=== PATIENT | male | born 1940 | race Two or more races ===

== ENCOUNTER → 2017-01-06 | Outpatient (CLI) | payer MEDICARE, OTHER ==
[~2017-01-06] MED LIST: APIX5TAB PO; ASPI1TAB57 PO; ATOR40TA16 PO; ATOR80TA45 PO; CIPR-9 PO; CLOP75TA PO; ENOX30P SQ; EZET10 PO; FINA5TAB2 PO; HYDR-3366 PO; HYDR-3583 PO; NITR1SUB3 SL; RANI150T PO; TAMS0.4C4 PO; TOPI50TA7 PO; TRAM50TA PO
[2017-01-06 12:09] LABS: AUTOMATED NEUTROPHIL # 4.6 TH/MM3 (1.8-7.7); BASOPHIL # 0.1 TH/MM3 (0-0.2); EOSINOPHIL # 0.1 TH/MM3 (0-0.4); EOSINOPHIL % 0.8 % (0.0-4.0); HEMATOCRIT 41.7 % (39.0-51.0); HEMO FLAGS DIFF FINAL; LYMPH % 19.6 % (9.0-44.0); LYMPHOCYTE # 1.3 TH/MM3 (1.0-4.8); MEAN CELL VOLUME 93.2 FL (80.0-100.0); MEAN CORPUSCULAR HEMOGLOBIN 31.5 PG (27.0-34.0); MEAN CORPUSCULAR HGB CONC 33.8 % (32.0-36.0); MONO % 9.1 % (0.0-8.0); NEUT % 69.5 % (16.0-70.0); PLATELET COUNT 179 TH/MM3 (150-450); RED BLOOD COUNT 4.47 MIL/MM3 (4.50-5.90); RED CELL DISTRIBUTION WIDTH 14.5 % (11.6-17.2); WHITE BLOOD COUNT 6.6 TH/MM3 (4.0-11.0)
[2017-01-06 12:16] LABS: APTT (PATIENT) 28.1 SEC (24.3-30.1); PROTHROMBIN TIME - PATIENT 10.8 SEC (9.8-11.6)
[2017-01-06 12:16] LABS: BACTERIA, URINE RARE /hpf; BLOOD, URINE NEG (NEG); COMMENT (UR) CULT NOT INDICATED; CULTURE IF INDICATED CULT NOT INDICATED; GLUCOSE,URINE NEG (NEG); KETONE, URINE NEG (NEG); MUCUS URINE FEW /lpf (OCC); NITRITE,URINE NEG (NEG); URINE COLOR YELLOW (YELLW/STRAW)
[2017-01-06 12:30] LABS: ANION GAP 5 MEQ/L (5-15); AST (GOT) 12 U/L (15-37); BLOOD UREA NITROGEN 19 MG/DL (7-18); CHLORIDE 111 MEQ/L (98-107); GLOMERULAR FILTRATION RATE 69 ML/MIN (>89); GLUCOSE,FASTING 85 MG/DL (74-99); POTASSIUM 4.3 MEQ/L (3.5-5.1); SODIUM (NA) 141 MEQ/L (136-145)
[2017-01-06 12:31] LABS: ALT (GPT) 14 U/L (12-78)
[2017-01-06 12:33] LABS: ALKALINE PHOSPHATASE 65 U/L (45-117); TOTAL BILIRUBIN ADULT 0.5 MG/DL (0.2-1.0)
--- NOTE | 2017-01-06 12:47 | RADRPT ---
EXAM DATE/TIME: 01/06/2017 12:38 [facility] COMPARISON: No previous studies available for comparison. INDICATIONS : Evaluate for pneumonia, pneumothorax and communicable diseases. Pre-op back surgery MEDICAL HISTORY : Cardiovascular disease. Hypertension SURGICAL HISTORY : Coronary artery stent. ENCOUNTER: Initial ACUITY: 1 day PAIN SCORE: 0/10 LOCATION: chest FINDINGS: PA and lateral views of the chest demonstrate the lungs to be symmetrically aerated without evidence of mass, infiltrate or effusion. The cardiomediastinal contours are unremarkable. Osseous structure s are intact. CONCLUSION: Normal examination. Jose Carlos Dudley MD on January 06, 2017 at 12:45 Board Certified Radiologist. This report was verified electronically.
--- NOTE | 2017-01-07 10:52 | EKG ---
Date Performed: 01/06/2017 Time Performed: 12:01:11 PTAGE: 76 years EKG: Sinus rhythm WITH OCCASIONAL SUPRAVENTRICULAR PREMATURE COMPLEXES BORDERLINE ECG NO PREVIOUS TRACING DOCTOR: Jose Carlos Roche Interpretating Date/Time 01/07/2017 10:51:57
== END ==
LOC: CPRE 11:38
PROVIDERS: ATTEND Neurological Surgery
DX: Z01.810 Encounter for preprocedural cardiovascular examination (principal); Z01.811 Encounter for preprocedural respiratory examination; Z01.812 Encounter for preprocedural laboratory examination; M51.16 Intervertebral disc disorders with radiculopathy, lumbar region; R94.31 Abnormal electrocardiogram [ECG] [EKG]; Z79.01 Long term (current) use of anticoagulants
CPT/HCPCS: 36415; 71020; 80053; 81001; 85025; 85610; 85730; 93005

== ENCOUNTER → 2017-01-14 | Day surgery (SDC) | payer MEDICARE, OTHER ==
[~2017-01-14] VITALS: Ht 172.7 cm; Wt 91.4 kg
[~2017-01-14] MED LIST changes: +ACETAMINOPHEN 1000 MG/100 ML 100 ML IV ONE; +BUPIVACAINE/EPINEPHRINE 0.5% PF 30 ML VIAL ONE; +CHLORHEXIDINE GLUCONATE 2 % 1 PACK (2 CLOTHS) TOPICAL PRN; +DO NOT ADM ANY ANTICOAGULANT DRUGS PRN; +GELFOAM SIZE 100 ONE; +GLYCOPYRROLATE 1 MG/5 ML SYRINGE IV PUSH ONE; +INSULIN HUMAN REGULAR 1,000 UNITS/10 ML VIAL SQ PRN; +LACTATED RINGER'S 1000 ML IV PRN; +LIDOCAINE HCL 1% PF 5 ML SYRINGE OTHER ONE; +METOPROLOL TARTRATE 25 MG TAB PO PRN; +MORPHINE SULFATE 4 MG/ML INJ ONE; +NEOSTIGMINE 3 MG/3 ML SYR IV ONE; +NORMOSOL R INJ 2,000 ML IV ONE; +ONDANSETRON HCL 4 MG/2 ML VIAL IV PUSH ONE; +PHENYLEPH/NS 1000 MCG/10 ML SYR IV ONE; +POVIDONE IODINE 5% (ANTISEPSIS KIT) 4 APPLICATIONS EACH NARE PRN; +PROPOFOL 200 MG/20 ML AMP IV ONE; +ROCURONIUM INJ 50 MG/5 ML SYRINGE IV PUSH ONE; +SODIUM CHLOR 0.9% 1000 ML INJ 1,000 ML IV SCH; +SODIUM CHLORID 0.9% 500 ML IV PRN; +THROMBIN (TOPICAL) 5,000 UNIT VIAL ONE; +VANCOMYCIN HCL 1000 MG ON-CALL/NS 250 ML IV SCH; +VANCOMYCIN HCL 1000 MG VIAL ONE; +ePHEDrine/NS 25 MG/5 ML SYR IV ONE; +methylPREDNISolone ACETATE 40 MG/ML VIAL ONE
--- NOTE | 2017-01-14 11:37 | RADRPT ---
EXAM DATE/TIME: 01/14/2017 08:49 [facility] COMPARISON: No previous studies available for comparison. INDICATIONS : L3-L4 and L4-L5 sj-laminectomy. Level localization. MEDICAL HISTORY : None. SURGICAL HISTORY : None. ENCOUNTER: Subsequent ACUITY: 1 day PAIN SCORE: Non-responsive. LOCATION: Lumbar spine. FINDINGS: Single limited lateral view of the low lumbar spine reveals localization markers directed toward the L3-4 and L4-5 disc space. CONCLUSION: Localization at L3-4 and L4-5 Jasvir Soares MD on January 14, 2017 at 11:34 Board Certified Radiologist. This report was verified electronically.
--- NOTE | 2017-01-14 11:50 | PD.OP ---
Georges Baron MD Operative Report Date of Surgery: Jan 14, 2017 Preoperative Diagnosis: Low back pain with the left lower extremity polyradiculopathy; L3-4 and L4-5 disc herniation with facet hypertrophy and associated spinal/foraminal stenosis Postoperative Diagnosis: Same Procedure: Left L3-4 and L4-5 hemilaminotomy with medial facetectomy and foraminotomy and microdiscectomy; microsurgical technique Anesthesia: Gen. endotracheal by Vu sotomayor Surgeon: Ashu Potter M.D. Whizzer Operator(s): Megan Ibarra Operation and Findings: Following administration of general endotracheal anesthesia, patient received vancomycin 1 g intravenously. Sequential compression devices were placed for DVT prophylaxis. He was then turned in prone position on Tahir frame and the Naeem table and all pressure points adequately padded. The lumbar region was then shaved and prepped with a Betadine and ChloraPrep. Sterile draping undertaken with Ioban. Midline incision overlying the L3-L5 levels was then made after infiltrating the skin with 0.5% Marcaine with epinephrine solution. The skin incision was made extending down through the fascia and then using the subperiosteal plane on the right side the muscular attachments to the spinous process and lamina were detached. Intraoperative fluoroscopy was used for level confirmation and further dissection undertaken using microtechnique with microscope magnification. The inferior portion of the left L3, L4 and superior portion of the L lamina was then drilled out and the underlying ligamentum flavum also removed. There was some facet arthropathy noted in the medial portion of facet was also resected and the lateral recess decompressed. Epidural venous stasis which he with the bipolar cautery along with Gelfoam and thrombin and bone wax used at the laminotomy edges for hemostasis. The thecal sac was then gently retracted with a nerve root retractor at both L3-4 and L4-5 levels and an extruded disc fragments identified which was migrated into the foramens. Fragments were removed with pituitary forceps and the nerve root impingement radicular laterally in the foramens along with thecal sac compression decompressed. The area was then copiously irrigated with vancomycin solution. The retractors removed and the muscle fascia proximal using 2-0 Vicryl interrupted stitches. 3-0 Vicryl subcuticular stitches were also placed in an interrupted fashion and planned skin closure was with Mastisol and Steri-Strips. A sterile dressing was then applied and the patient then turned in the supine position and extubated and taken to recovery room in stable condition. There were no intraoperative complications and all sponge and needle count was correct at the end of the procedure. Estimated blood loss about 50 cc. Ashu Potter MD Jan 14, 2017 11:49
[2017-01-14 14:20] VITALS: BP 110/72; PULSE 78; RESP 16; TEMP 97.5; O2SAT 97
== END | disposition home or self-care (01) ==
LOC: HSDC 05:18
PROVIDERS: ATTEND Neurological Surgery
DX: M51.16 Intervertebral disc disorders with radiculopathy, lumbar region (principal)
CPT/HCPCS: 00630; 63030; 63035; 72020; 76000; J0131; J1030; J2270; J2370; J2405; J2710; J3010; J3370; J7120

== ENCOUNTER → 2017-08-10 | Outpatient (CLI) | payer MEDICARE, OTHER ==
[~2017-08-10] MED LIST changes: -ACETAMINOPHEN 1000 MG/100 ML 100 ML IV ONE; -ATOR80TA45 PO; -BUPIVACAINE/EPINEPHRINE 0.5% PF 30 ML VIAL ONE; -CHLORHEXIDINE GLUCONATE 2 % 1 PACK (2 CLOTHS) TOPICAL PRN; +CYCL10TA PO; -DO NOT ADM ANY ANTICOAGULANT DRUGS PRN; -ENOX30P SQ; +GABA300C5 PO; -GELFOAM SIZE 100 ONE; -GLYCOPYRROLATE 1 MG/5 ML SYRINGE IV PUSH ONE; -HYDR-3583 PO; -INSULIN HUMAN REGULAR 1,000 UNITS/10 ML VIAL SQ PRN; -LACTATED RINGER'S 1000 ML IV PRN; -LIDOCAINE HCL 1% PF 5 ML SYRINGE OTHER ONE; -METOPROLOL TARTRATE 25 MG TAB PO PRN; -MORPHINE SULFATE 4 MG/ML INJ ONE; -NEOSTIGMINE 3 MG/3 ML SYR IV ONE; -NORMOSOL R INJ 2,000 ML IV ONE; -ONDANSETRON HCL 4 MG/2 ML VIAL IV PUSH ONE; -PHENYLEPH/NS 1000 MCG/10 ML SYR IV ONE; -POVIDONE IODINE 5% (ANTISEPSIS KIT) 4 APPLICATIONS EACH NARE PRN; -PROPOFOL 200 MG/20 ML AMP IV ONE; -ROCURONIUM INJ 50 MG/5 ML SYRINGE IV PUSH ONE; -SODIUM CHLOR 0.9% 1000 ML INJ 1,000 ML IV SCH; -SODIUM CHLORID 0.9% 500 ML IV PRN; -THROMBIN (TOPICAL) 5,000 UNIT VIAL ONE; -TRAM50TA PO; -VANCOMYCIN HCL 1000 MG ON-CALL/NS 250 ML IV SCH; -VANCOMYCIN HCL 1000 MG VIAL ONE; -ePHEDrine/NS 25 MG/5 ML SYR IV ONE; -methylPREDNISolone ACETATE 40 MG/ML VIAL ONE
[2017-08-10 13:55] LABS: AUTOMATED NEUTROPHIL # 4.8 TH/MM3 (1.8-7.7); BASOPHIL # 0.1 TH/MM3 (0-0.2); BASOPHIL % 0.9 % (0.0-2.0); EOSINOPHIL # 0.1 TH/MM3 (0-0.4); HEMOGLOBIN 15.3 GM/DL (13.0-17.0); LYMPH % 20.9 % (9.0-44.0); LYMPHOCYTE # 1.5 TH/MM3 (1.0-4.8); MEAN CELL VOLUME 89.5 FL (80.0-100.0); MEAN CORPUSCULAR HEMOGLOBIN 30.4 PG (27.0-34.0); MEAN CORPUSCULAR HGB CONC 33.9 % (32.0-36.0); MEAN PLATELET VOLUME 8.2 FL (7.0-11.0); MONO % 8.1 % (0.0-8.0); MONOCYTE # 0.6 TH/MM3 (0-0.9); NEUT % 68.1 % (16.0-70.0); PLATELET COUNT 186 TH/MM3 (150-450); RED BLOOD COUNT 5.03 MIL/MM3 (4.50-5.90); RED CELL DISTRIBUTION WIDTH 14.2 % (11.6-17.2); WHITE BLOOD COUNT 7.1 TH/MM3 (4.0-11.0)
[2017-08-10 14:09] LABS: BILIRUBIN, URINE NEG (NEG); BLOOD, URINE NEG (NEG); GLUCOSE,URINE NEG (NEG); KETONE, URINE NEG (NEG); MUCUS URINE FEW /lpf (OCC); NITRITE,URINE NEG (NEG); URINE COLOR YELLOW (YELLW/STRAW); URINE LEUKOCYTE ESTERASE NEG (NEG)
[2017-08-10 14:09] LABS: PROTHROMBIN TIME - PATIENT 10.3 SEC (9.8-11.6)
[2017-08-10 14:19] LABS: ALBUMIN 3.8 GM/DL (3.4-5.0); AST (GOT) 12 U/L (15-37); BICARBONATE 23.7 MEQ/L (21.0-32.0); BLOOD UREA NITROGEN 17 MG/DL (7-18); CALCIUM 8.7 MG/DL (8.5-10.1); CHLORIDE 112 MEQ/L (98-107); GLOMERULAR FILTRATION RATE 73 ML/MIN (>89); GLUCOSE,FASTING 106 MG/DL (74-99); SODIUM (NA) 143 MEQ/L (136-145)
[2017-08-10 14:23] LABS: ALKALINE PHOSPHATASE 75 U/L (45-117); ALT (GPT) 21 U/L (12-78); TOTAL BILIRUBIN ADULT 0.4 MG/DL (0.2-1.0); TOTAL PROTEIN 7.5 GM/DL (6.4-8.2)
== END ==
LOC: CPRE 12:13
PROVIDERS: ATTEND Neurological Surgery
DX: Z01.812 Encounter for preprocedural laboratory examination (principal); M51.16 Intervertebral disc disorders with radiculopathy, lumbar region; M51.36 Other intervertebral disc degeneration, lumbar region; Z79.01 Long term (current) use of anticoagulants
CPT/HCPCS: 36415; 80053; 81001; 85025; 85610; 85730; 87640; 87641

== ENCOUNTER 2017-08-13 05:40 | Inpatient (IN) ==
[2017-08-16] MEDS ORDERED: Acetaminophen 325 MG Tablet PO PRN (00:01)
[2017-08-16] MEDS ORDERED: Calcium Gluconate Inj 1 GM in Sodium Chlor 0.9% Inj 100 ML IV.SIG PRN (00:01)
[2017-08-16] MEDS ORDERED: Chlorhexidine Gluconate 2% 1 Pack (2 Cloths) TOPICAL PRN (00:01)
[2017-08-16] MEDS ORDERED: Aluminum/Magnesium/Simethacone Susp 30 ML UDC PO PRN (00:01)
[2017-08-16] MEDS ORDERED: Bisacodyl 10 MG Supp RECTAL PRN (00:01)
[2017-08-16] MEDS ORDERED: Morphine Inj 4 MG/ML Vial IV.PUSH PRN (00:01)
[2017-08-16] MEDS ORDERED: Metoprolol Tartrate 25 MG Tablet PO PRN (00:01)
[2017-08-16] MEDS ORDERED: Magnesium Sulfate Inj 2 GM in Sodium Chlor 0.9% Inj 100 ML IV.SIG PRN (00:01)
[2017-08-16] MEDS ORDERED: Menthol 5.8 MG Lozenge BUCCAL PRN (00:01)
[2017-08-16] MEDS ORDERED: Potassium Chlor 20 mEq Premix 20 MEQ/100 ML PIGGYBACK IV.SIG PRN (00:01)
[2017-08-16] MEDS: Topiramate 25 MG Tablet PO SCH (09:21)
[2017-08-16] MEDS: Gabapentin 300 MG Capsule PO SCH ×2 (09:22→20:16)
[2017-08-16] MEDS: Senna/Docusate Sodium 8.6/50 MG Tablet PO SCH ×2 (09:22→20:17)
[2017-08-16] MEDS: Finasteride 5 MG Tablet PO SCH (09:22)
[2017-08-16] MEDS: Famotidine 20 MG Tablet PO SCH ×2 (09:22→20:16)
[2017-08-16] MEDS: Ezetimibe 10 MG Tablet PO SCH (09:23)
[2017-08-16] MEDS: Ciprofloxacin 500 MG Tablet PO SCH ×2 (09:23→20:16)
[2017-08-16] MEDS ORDERED: Zolpidem Tartrate 5 MG Tablet PO SCH (21:00)
--- NOTE | 2017-08-16 22:09 | P.PNNS ---
Subjective Interval history: 08/13/2017 lumbar interbody fusion. 08/16/2017: Ambulating slowly without assistance. Moderate low back pain control with medication. No lower extremity radicular pain symptoms. There is mild to moderate relatively steady drainage from the incision site. Steri-Strips remain in place Physical Exam Vital signs: Vital Signs 08/16/17 00:00 08/16/17 04:00 08/16/17 04:47 Temperature 98.2 F Pulse Rate 74 Respiratory Rate 18 18 Blood Pressure 96/50 L 119/66 Pulse Oximetry 95 08/16/17 08:00 08/16/17 12:00 08/16/17 15:17 Temperature 97.5 F L 97.6 F Pulse Rate 75 82 Respiratory Rate 16 18 13 Blood Pressure 101/53 L 130/75 Pulse Oximetry 97 96 08/16/17 16:00 08/16/17 20:00 08/16/17 20:15 Temperature 98.1 F 98.3 F Pulse Rate 90 94 H Respiratory Rate 18 18 18 Blood Pressure 108/57 L 117/68 Pulse Oximetry 95 100 Intake & Output 08/16/17 08/16/17 08/17/17 06:59 18:59 06:59 Intake Total 1300 / 1300 Balance 1300 / 1300 Weight 62.1 kg Intake: Oral 1300 / 1300 Other: # Voids 2 4 Date of Last Bowel Movement 08/16/17 Narrative: Respirations regular nonlabored No significant extremity edema Mild to moderate relatively constant serosanguineous drainage from the incision site. No complaint of headache when ambulating Ambulating slowly without assistance Sensation intact light touch lower extremities Strength intact lower extremities Assessment and Plan - Assessment (1) Stenosis, spinal, lumbar Code(s): M48.061 - Spinal stenosis, lumbar region without neurogenic claudication Status: Acute Qualifiers: Neurogenic claudication status: with neurogenic claudication Qualified Code (s): M48.062 - Spinal stenosis, lumbar region with neurogenic claudication - Plan Findings were discussed with the patient Discussed with patient's nursing staff Hold discharge today due to study mild to moderate persistent serous sanguinous drainage from the incision site. Continue dressing changes as needed to keep incision dry. Continue present pain medications, physical therapy
[2017-08-17] MEDS: Finasteride 5 MG Tablet PO SCH (08:19)
[2017-08-17] MEDS: Topiramate 25 MG Tablet PO SCH (08:19)
[2017-08-17] MEDS: Ezetimibe 10 MG Tablet PO SCH (08:19)
[2017-08-17] MEDS: Gabapentin 300 MG Capsule PO SCH (08:20)
[2017-08-17] MEDS: Senna/Docusate Sodium 8.6/50 MG Tablet PO SCH (08:20)
[2017-08-17] MEDS: Famotidine 20 MG Tablet PO SCH (08:20)
[2017-08-17] MEDS: Ciprofloxacin 500 MG Tablet PO SCH (08:22)
--- NOTE | 2017-08-17 09:16 | P.PNNS ---
Subjective Interval history: Pt awake and alert. States incisional pain is improved today. He states pain in left leg is improved. He was having numbness in left anterior ly which is improved this morning. He states he has had blood draining from the incision over the weekend but is better today. He wants to be discharged home. Physical Exam Vital signs: Vital Signs 08/16/17 12:00 08/16/17 15:17 08/16/17 16:00 Temperature 97.6 F 98.1 F Pulse Rate 82 90 Respiratory Rate 18 13 18 Blood Pressure 130/75 108/57 L Pulse Oximetry 96 95 08/16/17 20:00 08/16/17 20:15 08/17/17 00:00 Temperature 98.3 F 98.4 F Pulse Rate 94 H 90 Respiratory Rate 18 18 18 Blood Pressure 117/68 111/65 Pulse Oximetry 100 93 L 08/17/17 04:06 08/17/17 08:00 Temperature 98 F Pulse Rate 78 Respiratory Rate 18 18 Blood Pressure 99/55 L Pulse Oximetry 94 L Intake & Output 08/16/17 08/17/17 08/17/17 18:59 06:59 18:59 Intake Total 1300 / 1300 Balance 1300 / 1300 Weight 62.1 kg Intake: Oral 1300 / 1300 Other: # Voids 4 3 Date of Last Bowel Movement 08/16/17 08/16/17 - Constitutional no acute distress, average body habitus - Routine HEENT Exam Head: Present: normocephalic Eye: Present: EOMI. Absent: conjunctival icterus - Routine Respiratory Exam Present: CTA bilaterally - Routine Cardiovascular Exam Absent: S1, S2, murmur - Routine Abdominal Exam Present: soft. Absent: tenderness, distended, guarding - Routine Skin Exam Absent: erythema Comments: Pt with bloody serous drainage on bandage but decreasing. Not draining when sitting up on edge of bed. No erythema. Steristrips intact. - Routine Neurological Exam Present: alert, oriented X3, normal speech. Absent: facial asymmetry - Detailed Neurological Exam: Coma Scale Eye Opening: Spontaneous Verbal Response: Oriented Motor Response: Obey commands [place] Coma Scale Total: 15 - Routine Psychiatric Exam Present: normal affect, good insight, good judgment Assessment and Plan - Assessment (1) Stenosis, spinal, lumbar Code(s): M48.061 - Spinal stenosis, lumbar region without neurogenic claudication Status: Acute Qualifiers: Neurogenic claudication status: with neurogenic claudication Qualified Code (s): M48.062 - Spinal stenosis, lumbar region with neurogenic claudication Plan: Continue with post operative care Continue with frequent bandage changes Pt requesting discharge home and does not want home health stating his can change the bandages. - Plan Discharge pt home Keep incision clean and dry. Continue with frequent bandage changes. Discussed restrictions with pt.
--- NOTE | 2017-09-20 14:41 | P.DS ---
Date of admission: 08/13/17 05:40 Primary care physician: Georges Baron MD Attending physician on discharge: Ashu Potter Anticipated date of discharge: 08/17/17 Brief History from admission: This is a 77-year-old male who presented to our office for an evaluation of low back pain more eccentric to the left side radiating into the left anterior leg to the ankle. He has previously undergone a left L3/L4 and L4/L5 hemilaminectomy on 01/14/17. The patient states his pain started when he had pain management in the and he states that he felt like they had a nerve. He denies any pain radiating into the right lower extremity. He states he has numbness in the left anterior leg in particular in the left lateral calf and anterior ly. He denies any weakness or falls. He denies any bowel bladder incontinence. He states he does feel off balance. He also states he gets paresthesias in the right upper extremity including his hand. He states that when he flexes his lumbar spine he feels that he improves. He describes the pain in the left lower extremity as a hard pain nonelectrical. Lying down he states does help his pain a little. He has tried physical therapy which exacerbated his pain. He again states that the pain started with pain management. DS: Diagnosis - Discharge Diagnosis (1) Stenosis, spinal, lumbar Status: Acute (2) Degeneration of lumbar intervertebral disc Status: Acute (3) Lumbar disc prolapse with compression radiculopathy Status: Acute (4) Arthropathy of lumbar facet joint Status: Acute (5) Lumbar post-laminectomy syndrome Status: Acute DS: Summary Hospital Course: Patient underwent a left L4/L5 transforaminal decompression with interbody fusion with cage and pedicle screw fixation by Ashu Potter MD on 08/15/17. Post operatively he was admitted to the medical/surgical floor. PT was consulted and his activity status was increased. His pain was controlled. Pt was voiding. He was subsequently discharged in stable condition. - Time Spent with Patient Total time spent providing and/or coordinating discharge services: Less than 30 minutes Results Procedures completed during hospitalization: L4/L5 transforaminal interbody fusion with cage and pedicle screw fixation on by Ashu Potter MD. Discharge Plan - Discharge Disposition Patient Disposition: 01 Discharge Home - Discharge Condition Condition: Stable - Discharge Order Discharge Orders: Discharge Order (Routine); Ordered 08/17/17 Ordered By: Alonso Olivares - Physicians Team Primary Care Provider: Goerges Baron Attending Provider: Ashu Potter - Rxs /Orders / Referrals /Forms Prescriptions: Continue aspirin 81 mg Tablet,Chewable 81 mg PO DAILY atorvastatin 40 mg Tablet 40 mg PO HS ciprofloxacin HCl [Cipro] 500 mg Tablet 500 mg PO BID cyclobenzaprine 10 mg Tablet 10 mg PO TID PRN (Reason: Spasms) ezetimibe [Zetia] 10 mg Tablet 10 mg PO DAILY finasteride 5 mg Tablet 5 mg PO DAILY gabapentin 300 mg Capsule 300 mg PO BID hydrocodone-acetaminophen [Redig] 10-325 mg Tablet 1 tab PO Q4H PRN (Reason: Pain) nitroglycerin 0.4 mg Tablet, Sublingual 0.4 mg SUBLINGUAL Q5-15M PRN (Reason: Chest Pain) ranitidine HCl 150 mg Tablet 150 mg PO DAILY tamsulosin 0.4 mg Capsule,Extended Release 24hr 0.4 mg PO DAILY topiramate 50 mg Tablet 50 mg PO DAILY Discontinued apixaban 5 mg Tablet 5 mg PO DAILY Referrals: Georges Baron MD [Primary Care Provider] - See Instructions - Discharge Instructions Patient Printed Instructions: How to Choose and Use a Walker (GEN), Acute Low Back Pain (ED), Back Pain (ED), Fall Prevention (DC), BELINDA Hose (DC), Lumbar Brace (DC) Additional Instructions: followup with physicians as suggested. Call to make followup appointments. No pushing, pulling or lifting until physician gives approval. Do not drink alcohol and take pain medications. Do not drive while on pain medications or until physician gives approval. RX for Redig 10 and Flexeril 10 given to patient upon discharge.
== END 2017-08-17 10:33 | disposition home or self-care (01) ==
LOC: UNDODISIN → N06 05:40
PROVIDERS: ADMIT Neurological Surgery; ATTEND Neurological Surgery